=== PATIENT | female | born 1945 | race Caucasian/White ===

== ENCOUNTER 2021-06-08 14:37 | Outpatient (CLI) | payer MEDICARE, OTHER ==
[2021-06-08] MEDS ORDERED: Magnevist 469MG/ML 20 ML VIAL ONE (15:23)
== END 2021-06-08 14:38 | disposition home or self-care (01) ==
LOC: CSHMRI 14:37
PROVIDERS: ATTEND Family Medicine
DX: R41.3 Other amnesia (principal); R90.89 Other abnormal findings on diagnostic imaging of central nervous system; G93.9 Disorder of brain, unspecified; I67.89 Other cerebrovascular disease; J32.0 Chronic maxillary sinusitis
CPT/HCPCS: 70553; 82565; A9579